=== PATIENT | male | born 1990 | race African-American/Black ===

== ENCOUNTER 2017-10-26 21:41 | Emergency (ER) | payer MEDICAID ==
[~2017-10-26] VITALS: Ht 167.6 cm; Wt 77.0 kg
[2017-10-26 23:56] LABS: BASOPHILS % 0.3 % (0.0-2.0); EOSINOPHILS % 0.6 % (0.0-5.0); HEMATOCRIT. 40.2 % (42.0-52.0); HEMOGLOBIN. 13.4 g/dL (14.0-18.0); LYMPHOCYTES % 11.6 % (20.0-50.0); MEAN CORPUSCULAR VOLUME 86.8 fL (80.0-94.0); MEAN PLATELET VOLUME 8.8 fl (7.4-10.4); MONOCYTES % 5.7 % (2.0-8.0); NEUTROPHILS % 81.8 % (40.0-76.0); PLATELET 180 x1000/uL (130-400); RED BLOOD CELL COUNT 4.63 mill/uL (4.7-6.1); RED CELL DISTRIBUTION WIDTH 12.8 % (11.6-14.6)
[2017-10-27 00:03] LABS: CHLORIDE 102 mEq/L (98-107)
[2017-10-27] MEDS ORDERED: KETOROLAC 60MG/2ML VIAL IM ONE (00:30)
[2017-10-27 00:31] LABS: CLARITY URINE CLOUDY (CLEAR); COLOR URINE YELLOW (YELLOW); KETONES URINE NEGATIVE (NEGATIVE); LEUKOCYTE ESTERASE URINE 3+ (NEGATIVE); NITRITE URINE NEGATIVE (NEGATIVE); OCCULT BLOOD URINE TRACE (NEGATIVE); PH URINE 6.5 (4.5-8.0); PROTEIN URINE NEGATIVE (NEGATIVE); SPECIFIC GRAVITY URINE 1.009 (1.005-1.030)
[2017-10-27] MEDS ORDERED: CEFTRIAXONE SODIUM 250 MG/VIAL IM ONE (01:15)
[2017-10-27] MEDS ORDERED: LIDOCAINE HCL 1% 20ML VIAL (Pyxis) INJ INFIL ONE (01:15)
[2017-10-27 01:35] VITALS: BP 118/75
== END 2017-10-27 01:40 | disposition home or self-care (01) ==
LOC: ER 21:41
DX: N39.0 Urinary tract infection, site not specified (principal); N50.3 Cyst of epididymis; N50.82 Scrotal pain; N43.3 Hydrocele, unspecified; R10.32 Left lower quadrant pain; N50.819 Testicular pain, unspecified
CPT/HCPCS: 36415; 76870; 80048; 81001; 85025; 87086; 93976; 96372; 99285; J0696; J1885; J3490; Z7610

== ENCOUNTER 2020-02-07 16:36 | Emergency (ER) | payer MEDICAID ==
[~2020-02-07] VITALS: Ht 172.7 cm; Wt 75.0 kg
[2020-02-07] MEDS ORDERED: LIDOCAINE HCL/PF 1% 10 MG/ML 5ML VIAL IJ ONE (18:00)
[2020-02-07] MEDS ORDERED: HYDROCODONE/ACETAMINOPHEN 5/325MG TABLET PO ONE (18:00)
[2020-02-07] MEDS ORDERED: TETANUS, DIPHTHERIA, PERTUSSIS VAC/PF 0.5ML (>7YR OLD) IM ONE (18:00)
[2020-02-07] MEDS ORDERED: SULFAMETHOXAZOLE/TRIMETHOPRIM 800/160MG TABLET PO ONE (18:00)
[2020-02-07] MEDS ORDERED: CEPHALEXIN 250MG CAPSULE PO ONE (18:00)
[2020-02-07] MEDS ORDERED: IBUPROFEN 600MG TABLET PO ONE (18:00)
[2020-02-07 19:05] VITALS: BP 128/77
== END 2020-02-07 19:31 | disposition home or self-care (01) ==
LOC: ER 16:36
DX: L02.412 Cutaneous abscess of left axilla (principal)
CPT/HCPCS: 10060; 87070; 87077; 87205; 90471; 90715; 99284; J3490

== ENCOUNTER 2022-04-18 15:06 | Emergency (ER) | payer MEDICAID, OTHER ==
[~2022-04-18] VITALS: Ht 167.6 cm; Wt 88.0 kg
[2022-04-18 15:23] VITALS: BP 119/67
[2022-04-18] MEDS ORDERED: IBUPROFEN 600MG TABLET PO ONE (16:45)
[2022-04-18] MEDS ORDERED: IBUP-2029 MT (16:45)
== END 2022-04-18 19:18 | disposition home or self-care (01) ==
LOC: ER 15:06
DX: B34.9 Viral infection, unspecified (principal); Z20.822 Contact with and (suspected) exposure to COVID-19
CPT/HCPCS: 87426; 99283

== ENCOUNTER 2022-04-18 23:03 | Emergency (ER) | payer MEDICAID ==
[~2022-04-18 23:03] MED LIST: IBUP-2029 MT
== END 2022-04-19 00:40 | disposition left against medical advice (07) ==
LOC: ER 04-19 00:02
DX: Z53.21 Procedure and treatment not carried out due to patient leaving prior to being seen by health care provider (principal)